=== PATIENT | female | born 1955 | race Caucasian/White ===

== ENCOUNTER 2021-12-10 07:32 | Day surgery (SDC) | payer BC ==
[~2021-12-10 07:32] MED LIST: Lactated Ringers 1,000 ML IV SCH; Ondansetron 4 MG/2 ML SDV ONE; Propofol 200 MG/20 ML SDV ONE; fentaNYL 100 MCG/2 ML SDV ONE
[2021-12-10] MEDS ORDERED: Lactated Ringers 1,000 ML IV SCH (09:15)
== END 2021-12-10 09:40 | disposition home or self-care (01) ==
LOC: MW.SDS 07:32
PROVIDERS: ATTEND Surgery
DX: D12.0 Benign neoplasm of cecum (principal); K63.89 Other specified diseases of intestine; E78.00 Pure hypercholesterolemia, unspecified; F17.210 Nicotine dependence, cigarettes, uncomplicated; Z79.02 Long term (current) use of antithrombotics/antiplatelets; Z87.442 Personal history of urinary calculi
CPT/HCPCS: 45380; J2405; J2704; J3010; J7120; 00812